=== PATIENT | female | born 2000 | race Hispanic/Latino ===

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

== ENCOUNTER 2024-03-04 17:59 | Emergency (ER) | payer SELFPAY ==
[2024-03-04] MEDS ORDERED: Fluorescein Opthalmic Strip ONE (19:34)
[2024-03-04] MEDS ORDERED: Proparacaine 0.5% Opth 15 ML BOT ONE (19:35)
[2024-03-04] MEDS ORDERED: Erythromycin Base 0.5% Oint 1 GM TUBE ONE (20:12)
== END 2024-03-04 20:29 | disposition home or self-care (01) ==
LOC: ERS 17:59
DX: S05.02XA Injury of conjunctiva and corneal abrasion without foreign body, left eye, initial encounter (principal); X58.XXXA Exposure to other specified factors, initial encounter
CPT/HCPCS: 99282